=== PATIENT | female | born 1955 | race Caucasian/White ===

== ENCOUNTER 2020-03-17 14:09 | Emergency (ER) | payer MEDICARE, MEDICAID ==
[~2020-03-17] VITALS: Ht 160 cm; Wt 77.3 kg
--- NOTE | 2020-03-17 14:58 | PHYS DOC ---
Past History Past Medical History: Renal Disease Additional Past Medical Histor: dialysis Past Surgical History: No Surgical History Alcohol Use: None General Adult EDM: Chief Complaint: KNEE SWELLING HPI: HPI: Patient is a 65-year-old female who presents with a chief complaint of left knee swelling. Patient went to bed her normal state of health but woke up this morning with left knee swelling. Patient denies any trauma to the area. Patient denies any fever, chills or cough. Patient does state there is some warmth to the knee but there is no skin changes. Pain is moderate at rest and more severe with range of motion. Pain is a throbbing sensation. Review of Systems: Review of Systems: Constitutional: Denies fever or chills Eyes: Denies change in visual acuity HENT: Denies nasal congestion or sore throat Respiratory: Denies cough or shortness of breath Cardiovascular: Denies chest pain or edema GI: Denies abdominal pain, nausea, vomiting, bloody stools or diarrhea : Denies dysuria Musculoskeletal: Denies back pain but has left knee pain Integument: Denies rash Neurologic: Denies headache, focal weakness or sensory changes Endocrine: Denies polyuria or polydipsia Lymphatic: Denies swollen glands Psychiatric: Denies depression or anxiety Allergies: Allergies: Allergies Coded Allergies Type Severity Reaction Last Updated Verified No Known Drug Allergies 03/17/20 No Physical Exam: PE: Constitutional: Well developed, well nourished, no acute distress, non-toxic appearance. [] HENT: Normocephalic, atraumatic, bilateral external ears normal, oropharynx moist, no oral exudates, nose normal. [] Eyes: PERRLA, EOMI, conjunctiva normal, no discharge. [] Neck: Normal range of motion, no tenderness, supple, no stridor. [] Cardiovascular:Heart rate regular rhythm, no murmur [] Lungs & Thorax: Bilateral breath sounds clear to auscultation [] Abdomen: Bowel sounds normal, soft, no tenderness, no masses, no pulsatile masses. [] PD catheter in place Skin: Warm, dry, no erythema, no rash. [] Back: No tenderness, no CVA tenderness. [] Extremities: Swelling to the left knee without erythema, mild warmth is present. Limited range of motion due to pain Neurologic: Alert and oriented X 3, normal motor function, normal sensory function, no focal deficits noted. [] Psychologic: Affect normal, judgement normal, mood normal. [] Current Patient Data: Vital Signs: Vital Signs Date Time Temp Pulse Resp B/P (MAP) Pulse Ox O2 Delivery O2 Flow Rate FiO2 03/17/20 14:24 98.1 70 16 135/80 (98) 97 Room Air EKG: EKG: [] Radiology/Procedures: Radiology/Procedures: [][place] [address] IMAGING REPORT Signed PATIENT: BRENDA COBOS ACCOUNT: [id number] : 1955 LOCATION: ER AGE: 65 SEX: F EXAM STATUS: REG ER ORD. PHYSICIAN: SARAHY BUSTAMANTE MD REASON: SWELLING LEFT KNEE, LEFT KNEE PAIN PROCEDURE: KNEE LEFT 3V EXAM: Left knee, 3 views. HISTORY: Swelling. Pain. COMPARISON: None. FINDINGS: 3 views of the left knee are obtained. There is mild tricompartmental spurring. There is a small joint effusion. There are left knee joint loose bodies. There is no fracture, dislocation or subluxation. IMPRESSION: 1. Mild tricompartmental osteoarthritis of the left knee with small joint loose bodies and joint effusion. 2. No acute osseous finding. Electronically signed by: Amelia Dobson MD (03/17/2020 3:06 PM) [facility] DICTATED AND SIGNED BY: AMELIA DOBSON MD DATE: 03/17/20 8110 CC: SARAHY BUSTAMANTE MD; DONALD CALDERON MD ~MTH0 0 Heart Score: Risk Factors: Risk Factors: DM, Current or recent (<one month) smoker, HTN, HLP, family history of CAD, obesity. Risk Scores: Score 0 - 3: 2.5% MACE over next 6 weeks - Discharge Home Score 4 - 6: 20.3% MACE over next 6 weeks - Admit for Clinical Observation Score 7 - 10: 72.7% MACE over next 6 weeks - Early Invasive Strategies Course & Med Decision Making: Course & Med Decision Making Pertinent Labs and Imaging studies reviewed. (See chart for details) [] Arthrocentesis procedure After obtaining informed consent an arthrocentesis was attempted on the left knee. Clinical education and left knee pain, rule out septic arthritis. The skin was prepped with Betadine in the usual sterile fashion. A medial approach was attempted with a 25-gauge needle used to anesthetize the skin with 1% lidocaine and an 18-gauge needle was inserted sterilely, no fluid was able to be drawn. Patient tolerated procedure well no complications Patient feels better after the attempted arthrocentesis. 64-year-old female presents with left knee pain and swelling. I attempted arthrocentesis but was unable to get any fluid. Patient's white blood cell count slightly elevated CRP is mildly elevated as well. Patient does not have a fever or redness to the area and the area only had minimal warmth, my guess is that is not septic arthritis but I did explain to the patient she is at risk for this and I cannot rule this out based on her exam. I offered to transfer the patient to [facility] for orthopedic consult and antibiotics, patient is competent and declines this. We will treat her with an Zion wrap and give her referral to orthopedist. Patient told to return if concerns or fever or redness or worsening symptoms. Dragon Disclaimer: Dragon Disclaimer: This electronic medical record was generated, in whole or in part, using a voice recognition dictation system. Departure Departure: Impression: Primary Impression: Swelling of left knee joint Disposition: 01 DC HOME SELF CARE/HOMELESS Condition: STABLE Referrals: DONALD CALDERON MD (PCP) GINA ROCHA MD 2-3 DAYS Patient Instructions: Arthralgia Additional Instructions: EMERGENCY DEPARTMENT GENERAL DISCHARGE INSTRUCTIONS THANK YOU for coming to [facility] Emergency Department (ED) today and trusting us with your care. We trust that you had a positive experience in our Emergency Department. If you wish to speak to the department Management you can contact the emergency department at YOUR FOLLOW UP INSTRUCTIONS ARE FOLLOWS: Do you have a private doctor? If you do not have a private doctor, please ask f or a resource list of physicians or clinics that may be able to assist you with follow up care. The Emergency Physician has interpreted your x-rays. The X-ray specialist will also review them. If there is a change in the findings you will be notified in 48 hours when at all possible. A lab test or lab culture may have been done, your results will be reviewed and you will be notified if you need a change in treatment. ADDITIONAL INSTRUCTIONS AND INFORMATION Your care today has been supervised by a physician who is specially trained in emergency care. Many problems require more than one evaluation for a complete diagnosis and treatment. We recommend that you schedule your follow up appointment as recommended to ensure complete treatment of your illness or injury. If you are unable to obtain follow up care and continue to have a problem, or if your condition worsens we recommend that you return to the ED. We are not able to safely determine your condition over the phone nor are we able to give sound medical advice over the phone. For these safety reasons, if you call for medical advice we will ask you to come to the ED for further evaluation If you have any questions regarding these discharge instructions please call the ED at SAFETY INFORMATION In the interest of safety, wellness, and injury prevention; we encourage you to wear your seatbelt, if you smoke; quit smoking, and we encourage your family to use protective helmet for bicycling and other sporting events that present an increased risk for head injury. IF YOUR SYMPTOMS WORSEN OR NEW SYMPTOMS DEVELOP, OR YOU HAVE CONCERNS ABOUT YOUR CONDITION; OR IF YOUR CONDITION WORSENS WHILE YOU ARE WAITING FOR YOUR FOLLOW UP APPOINTMENT; EITHER CONTACT YOUR PRIMARY CARE DOCTOR, THE PHYSICIAN WHOSE NAME AND NUMBER YOU WERE GIVEN, OR RETURN TO THE ED IMMEDIATELY. Scripts Hydrocodone Bit/Acetaminophen (NORCO 5-325 TABLET) 1 Each Tablet 1 TAB PO PRN Q6HRS PRN for PAIN, #12 TAB 0 Refills Prov: SARAHY BUSTAMANTE MD 03/17/20 SARAHY BUSTAMANTE MD Mar 17, 2020 14:58
--- NOTE | 2020-03-17 15:08 | RAD ---
EXAM: Left knee, 3 views. HISTORY: Swelling. Pain. COMPARISON: None. FINDINGS: 3 views of the left knee are obtained. There is mild tricompartmental spurring. There is a small joint effusion. There are left knee joint loose bodies. There is no fracture, dislocation or harrell bluxation. IMPRESSION: 1. Mild tricompartmental osteoarthritis of the left knee with small joint loose bodies and joint effu aline. 2. No acute osseous finding. Electronically signed by: Amelia Barbosa MD (03/17/2020 3:06 PM) [facility]
[2020-03-17 16:17] LABS: BASO # 0.1 x10^3/uL (0.0-0.2); BASO % 1 % (0-3); EOS # 0.2 x10^3/uL (0.0-0.7); EOS % 2 % (0-3); HEMATOCRIT 37.2 % (36.0-47.0); LYMPH % 9 % (24-48); MEAN CORPUSCULAR HEMOGLOBIN 32 pg (25-35); MEAN CORPUSCULAR HGB CONC 32 g/dL (31-37); MEAN CORPUSCULAR VOLUME 98 fL (79-100); MONO # 0.7 x10^3/uL (0.0-1.1); MONO % 6 % (0-9); NEUT # 9.1 x10^3uL (1.8-7.7); NEUT % 83 % (31-73); PLATELET COUNT 203 x10^3/uL (140-400); RED BLOOD COUNT 3.79 x10^6/uL (3.50-5.40); RED CELL DISTRIBUTION WIDTH 13.9 % (11.5-14.5); WHITE BLOOD COUNT 11.1 x10^3/uL (4.0-11.0)
[2020-03-17 16:19] LABS: CALCIUM 9.5 mg/dL (8.5-10.1); CREATININE 3.4 mg/dL (0.6-1.0); GFR 13.6; POTASSIUM 4.8 mmol/L (3.5-5.1)
[2020-03-17 16:22] LABS: C REACTIVE PROTEIN 13.7 mg/L (0-3.3)
[2020-03-17] MEDS ORDERED: LIDOCAINE 1% Multi-Dose 20 ML VIAL. ONE (16:26)
[2020-03-17] MEDS ORDERED: HYDR-3165 PO (17:12)
[2020-03-17] MEDS ORDERED: HYDROcodone/APAP 7.5/325MG 1 TAB TABLET PO ONE ×2 (17:15)
[2020-03-17 17:31] VITALS: BP 125/78
== END 2020-03-17 17:34 | disposition home or self-care (01) ==
LOC: ER 14:09
DX: M25.462 Effusion, left knee (principal); N28.9 Disorder of kidney and ureter, unspecified
CPT/HCPCS: 36415; 73562; 80048; 85025; 86140; 87040; 99284

== ENCOUNTER 2020-07-30 11:17 | Emergency (ER) | payer OTHER, MEDICARE, MEDICAID ==
[~2020-07-30] VITALS: Ht 160 cm; Wt 77.3 kg
[~2020-07-30 11:17] MED LIST: HYDR-3165 PO
[2020-07-30 11:54] VITALS: BP 154/70
[2020-07-30] MEDS ORDERED: LIDOCAINE/EPI/TETRACAINE TOPICAL GEL 3 ML. TP ONE (12:30)
[2020-07-30] MEDS ORDERED: DIPH,PERTUSS(ACELL),TET VAC/PF 0.5 ML SYRINGE. VAX IM ONE (12:30)
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
[2020-07-30] MEDS ORDERED: NEOM28.32 TP (13:02)
[2020-07-30] MEDS ORDERED: CEPH500T PO (13:02)
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
== END 2020-07-30 13:25 | disposition home or self-care (01) ==
LOC: ER 11:17
DX: S51.812A Laceration without foreign body of left forearm, initial encounter (principal); E11.9 Type 2 diabetes mellitus without complications; V87.7XXA Person injured in collision between other specified motor vehicles (traffic), initial encounter; Y93.89 Activity, other specified; Y92.89 Other specified places as the place of occurrence of the external cause; Y99.8 Other external cause status
CPT/HCPCS: 73090; 90471; 90715; 99283

== ENCOUNTER 2020-08-12 19:26 | Emergency (ER) | payer OTHER, MEDICARE, MEDICAID ==
[~2020-08-12] VITALS: Ht 160 cm; Wt 80.0 kg
[~2020-08-12 19:26] MED LIST changes: +CEPH500T PO; +NEOM28.32 TP
[2020-08-12 19:45] VITALS: BP 169/72
[2020-08-12] MEDS ORDERED: DEXAMETHASONE 4 MG TABLET PO ONE (19:45)
[2020-08-12] MEDS ORDERED: diphenhydrAMINE HCL 25 MG CAPSULE PO ONE (19:45)
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
== END 2020-08-12 20:26 | disposition home or self-care (01) ==
LOC: ER 19:26
DX: L23.7 Allergic contact dermatitis due to plants, except food (principal); F17.210 Nicotine dependence, cigarettes, uncomplicated
CPT/HCPCS: 99283; J8540; Q0163

== ENCOUNTER → 2020-08-14 | Outpatient (CLI) | payer MEDICARE, MEDICAID ==
[2020-08-12 19:45] VITALS: BP 169/72
--- NOTE | 2020-08-14 14:40 | RAD ---
EXAM: Chest, 2 views. HISTORY: COPD. Asthma. Shortness of breath. COMPARISON: None. FINDINGS: 2 views of the chest are obtained. There is enlargement of the cardiac silhouette. There is no consolidation, pleural effusion or pneumothorax. There are suspected bilateral infrahilar atelect asis or pleural parenchymal scarring. IMPRESSION: 1. Cardiomegaly. 2. Suspected bilateral infrahilar atelectasis or scarring. Electronically signed by: Amelia Barbosa MD (08/14/2020 2:38 PM) [id number]
== END ==
LOC: RAD 14:15
PROVIDERS: ATTEND Family Medicine
DX: J98.11 Atelectasis (principal); J45.909 Unspecified asthma, uncomplicated; I51.7 Cardiomegaly
CPT/HCPCS: 71046

== ENCOUNTER → 2020-09-07 | Day surgery (SDC) | payer MEDICARE, MEDICAID ==
[~2020-09-07] MED LIST changes: +ACETAMINOPHEN 500 MG TABLET PO PRN; +ALLO100T PO; +BALANCED SALT IRRIG SOLN NO.2 500 ML IO ONE; +BENZONATATE 100 MG CAPSULE. PO PRN; +BRIMONIDINE 0.2% OPHTH SOLUTION 5ML BOTTLE. OD ONE; +CEFUROXIME OPHTH 4 MG/0.4 ML SYRINGE. OD ONE; +CHONDROIT-SOD-HYALURONATE KIT. OD ONE; +CITA10TA4 PO; +FAMO20TA5 PO; +FOLI0.8T21 PO; +IBUPROFEN 200 MG TABLET PO PRN; +IPRATRPIUM/ALBUTEROL 0.5/2.5MG 3 ML NEBU. NEB PRN; +IV RINGERS SOLUTION,LACTATED 1,000 ML IV SCH; +LABE100T5 PO; +LIDO/EPI IN BSS OPHTH 2.7 ML SYRINGE. OD ONE; +LIDOCAINE 2% JELLY 6ML IN APPLICATOR. ONE; +LOSA50TA86 PO; +METO5TAB4 PO; +MIDAZOLAM HCL PF 2 MG/2 ML VIAL. IV ONE; +MIDAZOLAM HCL PF 2 MG/2 ML VIAL. ONE; +OMEP40CA7 PO; +PHENYLEPHRINE 10% OPHTH SOLUTION 5ML BOTTLE. OD PRN; +POVIDONE-IODINE 5% OPHTH SOLUTION 30ML BOTTLE. OD ONE; +POVIDONE-IODINE 5% OPHTH SOLUTION 30ML BOTTLE. OD PRN; +POVIDONE-IODINE 5% OPHTH SOLUTION 30ML BOTTLE. ONE; +PROPARACAINE 0.5% OPHTH SOLUTION 15ML BOTTLE. OD ONE; +PROPARACAINE 0.5% OPHTH SOLUTION 15ML BOTTLE. OD PRN; +ROPI0.254 PO; +TEMA15CA PO; +bupropion PEG; +prednisoLONE ACETATE 1% OPHTH SUSPENSION 5ML BOTTLE. OD ONE
[2020-09-07] MEDS: TROPICAMIDE 1% OPHTH SOLUTION 15ML BOTTLE. OD SCH ×3 (09:47→10:02)
[2020-09-07] MEDS: PHENYLEPHRINE 2.5% OPHTH SOLUTION 2ML BOTTLE. OD SCH ×3 (09:47→10:03)
[2020-09-07] MEDS: KETOROLAC TROMETHAMINE 0.5% OPHTH SOLUTION BOTTLE. OD SCH ×2 (09:47→09:57)
[2020-09-07] MEDS: TOBRAMYCIN 0.3% OPHTH SOLUTION 5ML BOTTLE. OD SCH ×2 (09:48→09:57)
--- NOTE | 2020-09-07 11:42 | PDOC4 ---
SURGEON: Wilber Juan MD Date of Procedure: 09/07/20 PREOP Diagnosis Visually significant cataract: Right Eye OD POSTOP Diagnosis Same PROCEDURE: Phaco w/ posterior chamber IOL: Right Eye OD ANESTHESIA Deep forniceal periocular 2% Lidocaine jelly Daniela/retro bulbar block with 2% Lidocaine with 0.5% Marcaine DESCRIPTION OF PROCEDURE The risks, benefits, and alternatives were discussed with the patient who elected to proceed. Informed consent was obtained in writing and placed in the chart After anesthetizing the eye topically, the patient was taken to the operating room, and the operative eye was prepped and draped in the usual sterile fashion for ocular surgery. A wire lid speculum was placed. A 1-mm clear corneal paracentesis incision was created with the side-port blade at a position three o'clock hours clockwise from the temporal cornea. Then, 1% non-preserved Lidocaine with epinephrine was injected into the anterior chamber followed by viscoelastic. Cotton-tipped applicators were used to stabilize the globe, and a 2.4 mm keratome was used to create a self-sealing incision in clear cornea at the temporal limbus. The Utrata forceps were used to create a continuous curvilinear capsulorrhexis. Balanced saline solution was injected via cannula beneath the capsulorrhexis edge to hydrodissect the lens nucleus and cortex from the lens capsule. The phacoemulsification handpiece and a chopping instrument were then used to remove the lens nucleus. The remaining epinuclear material and cortex were removed with the irrigation/aspiration handpiece. V iscoelastic was used to re-inflate the lens capsule, and the intraocular lens was injected directly into the capsular bag. The corneal wound edges were hydrated with balanced salt solution on a cannula and the irrigation/aspiration handpiece was used to extract the remaining viscoelastic. Cefuroxime 0.1mg/ml / Vigamox 0.5% was injected into the anterior chamber intracamerally. The wounds were inspected and found to be watertight at an appropriate intraocular pressure. Topical antibiotic drops were placed on the corneal surface. LRI: No If Yes, Number [] [place] [] Length [] degrees Depth [] microns Incision [place]: 180 Toric Lens [place] [] Patch/shield with Maxitrol/Tobradex/Erythromycin ointment: Yes No Co-managed patients/postop examination stable for co-management with referring doctor. EBL EBL: None SPECIMANS COLLECTED Specimens Collected: None WILBER JUAN MD Sep 07, 2020 11:42
[2020-09-07 11:52] VITALS: BP 118/65
== END | disposition home or self-care (01) ==
LOC: SURG 09:23
PROVIDERS: ATTEND Ophthalmology
DX: E11.36 Type 2 diabetes mellitus with diabetic cataract (principal); H25.11 Age-related nuclear cataract, right eye; J44.9 Chronic obstructive pulmonary disease, unspecified; I12.0 Hypertensive chronic kidney disease with stage 5 chronic kidney disease or end stage renal disease; E11.22 Type 2 diabetes mellitus with diabetic chronic kidney disease; J45.909 Unspecified asthma, uncomplicated; F17.210 Nicotine dependence, cigarettes, uncomplicated; Z79.899 Other long term (current) drug therapy; Z98.890 Other specified postprocedural states
CPT/HCPCS: 66984; V2632; J2250

== ENCOUNTER → 2020-09-21 | Day surgery (SDC) | payer MEDICARE, MEDICAID ==
[~2020-09-21] MED LIST changes: -BRIMONIDINE 0.2% OPHTH SOLUTION 5ML BOTTLE. OD ONE; +BRIMONIDINE 0.2% OPHTH SOLUTION 5ML BOTTLE. OS ONE; -CEFUROXIME OPHTH 4 MG/0.4 ML SYRINGE. OD ONE; +CEFUROXIME OPHTH 4 MG/0.4 ML SYRINGE. OS ONE; -CHONDROIT-SOD-HYALURONATE KIT. OD ONE; +CHONDROIT-SOD-HYALURONATE KIT. OS ONE; -LIDO/EPI IN BSS OPHTH 2.7 ML SYRINGE. OD ONE; +LIDO/EPI IN BSS OPHTH 2.7 ML SYRINGE. OS ONE; -PHENYLEPHRINE 10% OPHTH SOLUTION 5ML BOTTLE. OD PRN; +PHENYLEPHRINE 10% OPHTH SOLUTION 5ML BOTTLE. OS PRN; -POVIDONE-IODINE 5% OPHTH SOLUTION 30ML BOTTLE. OD ONE; -POVIDONE-IODINE 5% OPHTH SOLUTION 30ML BOTTLE. OD PRN; +POVIDONE-IODINE 5% OPHTH SOLUTION 30ML BOTTLE. OS ONE; +POVIDONE-IODINE 5% OPHTH SOLUTION 30ML BOTTLE. OS PRN; -PROPARACAINE 0.5% OPHTH SOLUTION 15ML BOTTLE. OD ONE; -PROPARACAINE 0.5% OPHTH SOLUTION 15ML BOTTLE. OD PRN; +PROPARACAINE 0.5% OPHTH SOLUTION 15ML BOTTLE. OS ONE; +PROPARACAINE 0.5% OPHTH SOLUTION 15ML BOTTLE. OS PRN; -prednisoLONE ACETATE 1% OPHTH SUSPENSION 5ML BOTTLE. OD ONE; +prednisoLONE ACETATE 1% OPHTH SUSPENSION 5ML BOTTLE. OS ONE
[2020-09-21] MEDS: TROPICAMIDE 1% OPHTH SOLUTION 15ML BOTTLE. OS SCH ×3 (09:45→09:57)
[2020-09-21] MEDS: PHENYLEPHRINE 2.5% OPHTH SOLUTION 2ML BOTTLE. OS SCH ×3 (09:45→09:56)
[2020-09-21] MEDS: KETOROLAC TROMETHAMINE 0.5% OPHTH SOLUTION BOTTLE. OS SCH ×2 (09:45→09:52)
[2020-09-21] MEDS: TOBRAMYCIN 0.3% OPHTH SOLUTION 5ML BOTTLE. OS SCH ×2 (09:46→09:52)
--- NOTE | 2020-09-21 11:42 | PDOC4 ---
SURGEON: Wilber Juan MD Date of Procedure: 09/21/20 PREOP Diagnosis Visually significant cataract: Left Eye OS POSTOP Diagnosis Same PROCEDURE: Phaco w/ posterior chamber IOL: Left Eye OS ANESTHESIA Deep forniceal periocular 2% Lidocaine jelly Daniela/retro bulbar block with 2% Lidocaine with 0.5% Marcaine DESCRIPTION OF PROCEDURE The risks, benefits, and alternatives were discussed with the patient who elected to proceed. Informed consent was obtained in writing and placed in the chart After anesthetizing the eye topically, the patient was taken to the operating room, and the operative eye was prepped and draped in the usual sterile fashion for ocular surgery. A wire lid speculum was placed. A 1-mm clear corneal paracentesis incision was created with the side-port blade at a position three o'clock hours clockwise from the temporal cornea. Then, 1% non-preserved Lidocaine with epinephrine was injected into the anterior chamber followed by viscoelastic. Cotton-tipped applicators were used to stabilize the globe, and a 2.4 mm keratome was used to create a self-sealing incision in clear cornea at the temporal limbus. The Utrata forceps were used to create a continuous curvilinear capsulorrhexis. Balanced saline solution was injected via cannula beneath the capsulorrhexis edge to hydrodissect the lens nucleus and cortex from the lens capsule. The phacoemulsification handpiece and a chopping instrument were then used to remove the lens nucleus. The remaining epinuclear material and cortex were removed with the irrigation/aspiration handpiece. Vis coelastic was used to re-inflate the lens capsule, and the intraocular lens was injected directly into the capsular bag. The corneal wound edges were hydrated with balanced salt solution on a cannula and the irrigation/aspiration handpiece was used to extract the remaining viscoelastic. Cefuroxime 0.1mg/ml / Vigamox 0.5% was injected into the anterior chamber intracamerally. The wounds were inspected and found to be watertight at an appropriate intraocular pressure. Topical antibiotic drops were placed on the corneal surface. LRI: No If Yes, Number [] [place] [] Length [] degrees Depth [] microns Incision [place]: 180 Toric Lens [place] [] Patch/shield with Maxitrol/Tobradex/Erythromycin ointment: Yes No Co-managed patients/postop examination stable for co-management with referring doctor. EBL EBL: None SPECIMANS COLLECTED Specimens Collected: None WILBER JUAN MD Sep 21, 2020 11:41
[2020-09-21 11:52] VITALS: BP 165/76
== END | disposition home or self-care (01) ==
LOC: SURG 09:27
PROVIDERS: ATTEND Ophthalmology
DX: E11.36 Type 2 diabetes mellitus with diabetic cataract (principal); H25.12 Age-related nuclear cataract, left eye; F41.9 Anxiety disorder, unspecified; J44.9 Chronic obstructive pulmonary disease, unspecified; K21.9 Gastro-esophageal reflux disease without esophagitis; F17.210 Nicotine dependence, cigarettes, uncomplicated; I12.0 Hypertensive chronic kidney disease with stage 5 chronic kidney disease or end stage renal disease; E11.22 Type 2 diabetes mellitus with diabetic chronic kidney disease; N18.6 End stage renal disease; Z72.89 Other problems related to lifestyle; Z79.899 Other long term (current) drug therapy
CPT/HCPCS: 66984; V2632; J2250

== ENCOUNTER 2020-10-26 11:52 | Emergency (ER) | payer MEDICAID, MEDICARE ==
[~2020-10-26] VITALS: Ht 160 cm; Wt 80.0 kg
[~2020-10-26 11:52] MED LIST changes: -ACETAMINOPHEN 500 MG TABLET PO PRN; -BALANCED SALT IRRIG SOLN NO.2 500 ML IO ONE; -BENZONATATE 100 MG CAPSULE. PO PRN; -BRIMONIDINE 0.2% OPHTH SOLUTION 5ML BOTTLE. OS ONE; -CEFUROXIME OPHTH 4 MG/0.4 ML SYRINGE. OS ONE; -CHONDROIT-SOD-HYALURONATE KIT. OS ONE; -IBUPROFEN 200 MG TABLET PO PRN; -IPRATRPIUM/ALBUTEROL 0.5/2.5MG 3 ML NEBU. NEB PRN; -IV RINGERS SOLUTION,LACTATED 1,000 ML IV SCH; -LIDO/EPI IN BSS OPHTH 2.7 ML SYRINGE. OS ONE; -LIDOCAINE 2% JELLY 6ML IN APPLICATOR. ONE; -MIDAZOLAM HCL PF 2 MG/2 ML VIAL. IV ONE; -MIDAZOLAM HCL PF 2 MG/2 ML VIAL. ONE; -PHENYLEPHRINE 10% OPHTH SOLUTION 5ML BOTTLE. OS PRN; -POVIDONE-IODINE 5% OPHTH SOLUTION 30ML BOTTLE. ONE; -POVIDONE-IODINE 5% OPHTH SOLUTION 30ML BOTTLE. OS ONE; -POVIDONE-IODINE 5% OPHTH SOLUTION 30ML BOTTLE. OS PRN; -PROPARACAINE 0.5% OPHTH SOLUTION 15ML BOTTLE. OS ONE; -PROPARACAINE 0.5% OPHTH SOLUTION 15ML BOTTLE. OS PRN; -prednisoLONE ACETATE 1% OPHTH SUSPENSION 5ML BOTTLE. OS ONE
[2020-10-26] MEDS ORDERED: IV NORMAL SALINE 1,000ML 1,000 ML IV ONE (13:15)
--- NOTE | 2020-10-26 13:16 | PHYS DOC ---
Past History Past Medical History: Hypertension Additional Past Medical Histor: dialysis Past Surgical History: No Surgical History Alcohol Use: Occasionally General Adult EDM: Chief Complaint: NAUSEA/VOMITING/DIARRHEA HPI: HPI: 65-year-old female presents with nausea and vomiting. The patient had some pork last night and about an hour later she had an episode of vomiting and stomach pain. She is concerned that she may have had mild food poisoning. She did not have any diarrhea. She has had no further vomiting. The pain has improved. Review of Systems: Review of Systems: Constitutional: Denies fever or chills Eyes: Denies change in visual acuity HENT: Denies nasal congestion or sore throat Respiratory: Denies cough or shortness of breath Cardiovascular: Denies chest pain or edema GI: Generalized abdominal pain, vomiting. : Denies dysuria Musculoskeletal: Denies back pain or joint pain Integument: Denies rash Neurologic: Denies headache, focal weakness or sensory changes Endocrine: Denies polyuria or polydipsia Lymphatic: Denies swollen glands Psychiatric: Denies depression or anxiety Current Medications: Current Meds: Current Medications Medications (Trade) Dose Ordered Sig/Jane Start Time Stop Time Status Last Admin Dose Admin Sodium Chloride 1,000 ml @ 1,000 mls/hr 1X ONCE 10/26/20 13:15 10/26/20 14:14 Allergies: Allergies: Allergies Coded Allergies Type Severity Reaction Last Updated Verified No Known Drug Allergies 09/19/20 No Physical Exam: PE: Constitutional: Well developed, well nourished, no acute distress, non-toxic appearance. [] HENT: Normocephalic, atraumatic, bilateral external ears normal, oropharynx moist, no oral exudates, nose normal. [] Eyes: PERRLA, EOMI, conjunctiva normal, no discharge. [] Neck: Normal range of motion, no tenderness, supple, no stridor. [] Cardiovascular:Heart rate regular rhythm, no murmur [] Lungs & Thorax: Bilateral breath sounds clear to auscultation [] Abdomen: Bowel sounds normal, soft, no tenderness, no masses, no pulsatile masses. [] Skin: Warm, dry, no erythema, no rash. [] Back: No tenderness, no CVA tenderness. [] Extremities: No tenderness, no cyanosis, no clubbing, ROM intact, no edema. [] Neurologic: Alert and oriented X 3, normal motor function, normal sensory fun ction, no focal deficits noted. [] Psychologic: Affect normal, judgement normal, mood normal. [] Current Patient Data: Vital Signs: Vital Signs Date Time Temp Pulse Resp B/P (MAP) Pulse Ox O2 Delivery O2 Flow Rate FiO2 10/26/20 12:08 98.7 71 18 142/62 97 Room Air EKG: EKG: [] Radiology/Procedures: Radiology/Procedures: [] Heart Score: C/O Chest Pain: N/A Risk Factors: Risk Factors: DM, Current or recent (<one month) smoker, HTN, HLP, family histo ry of CAD, obesity. Risk Scores: Score 0 - 3: 2.5% MACE over next 6 weeks - Discharge Home Score 4 - 6: 20.3% MACE over next 6 weeks - Admit for Clinical Observation Score 7 - 10: 72.7% MACE over next 6 weeks - Early Invasive Strategies Course & Med Decision Making: Course & Med Decision Making Pertinent Labs and Imaging studies reviewed. (See chart for details) Patient's labs are unremarkable except for an elevated potassium of 5.6. The patient is due to dialyze herself when she gets home today. BUN and creatinine are high as expected for a dialysis patient. She is stable for discharge at this time. [] Dragon Disclaimer: Dragdanie Disclaimer: This electronic medical record was generated, in whole or in part, using a voice recognition dictation system. Departure Departure: Impression: Primary Impression: Vomiting Additional Impression: Food poisoning Disposition: HOME / SELF CARE / HOMELESS Condition: STABLE Referrals: DENISE WOODWARD MD (PCP) Patient Instructions: Food Poisoning, [id number] DAVID DE LA ROSA DO Oct 26, 2020 13:16
[2020-10-26 13:51] LABS: BASO # 0.1 x10^3/uL (0.0-0.2); BASO % 1 % (0-3); EOS # 0.3 x10^3/uL (0.0-0.7); EOS % 3 % (0-3); HEMATOCRIT 34.3 % (36.0-47.0); HEMOGLOBIN 11.3 g/dL (12.0-15.5); LYMPH # 1.1 x10^3/uL (1.0-4.8); LYMPH % 14 % (24-48); MEAN CORPUSCULAR HEMOGLOBIN 33 pg (25-35); MEAN CORPUSCULAR HGB CONC 33 g/dL (31-37); MEAN CORPUSCULAR VOLUME 99 fL (79-100); MONO # 0.4 x10^3/uL (0.0-1.1); MONO % 6 % (0-9); NEUT # 5.7 x10^3uL (1.8-7.7); NEUT % 76 % (31-73); PLATELET COUNT 254 x10^3/uL (140-400); RED BLOOD COUNT 3.47 x10^6/uL (3.50-5.40); RED CELL DISTRIBUTION WIDTH 14.3 % (11.5-14.5); WHITE BLOOD COUNT 7.5 x10^3/uL (4.0-11.0)
[2020-10-26 13:59] LABS: CALCIUM 9.4 mg/dL (8.5-10.1); CREATININE 3.8 mg/dL (0.6-1.0); POTASSIUM 5.6 mmol/L (3.5-5.1)
[2020-10-26 14:05] LABS: ALBUMIN 3.2 g/dL (3.4-5.0); ALBUMIN/GLOBULIN RATIO 0.8 (1.0-1.7); TOTAL BILIRUBIN 0.2 mg/dL (0.2-1.0); TOTAL PROTEIN 7.1 g/dL (6.4-8.2)
[2020-10-26 14:42] VITALS: BP 136/60
== END 2020-10-26 14:46 | disposition home or self-care (01) ==
LOC: ER 11:52
DX: A05.9 Bacterial foodborne intoxication, unspecified (principal); R10.84 Generalized abdominal pain; I10 Essential (primary) hypertension
CPT/HCPCS: 36415; 80053; 85025; 99283

== ENCOUNTER 2020-11-08 10:57 | Emergency (ER) | payer MEDICARE, MEDICAID ==
[~2020-11-08] VITALS: Ht 160 cm; Wt 80.0 kg
--- NOTE | 2020-11-08 11:56 | PHYS DOC ---
Past History Past Medical History: Hypertension Additional Past Medical Histor: dialysis, vertigo Past Surgical History: No Surgical History Alcohol Use: None Adult General Chief Complaint Chief Complaint: SHORTNESS OF BREATH [facility] HPI Patient is a 62-year-old female patient presents with shortness of breath, and worsening murmur. Patient reports over the last couple weeks, she has noticed her heart murmur to be a lot lower than it used to be. States since last night, she has had some intermittent dizziness, states she been very unsteady on her feet. She is a dialysis patient, she is due to dialyze tomorrow. States this morning when she had gotten up, she started have some increased shortness of breath, has had some exertional dyspnea, with some nausea. States she has some chest pain prior to coming in, however states her chest pain is relieved while resting in bed at this time. She has not taken any additional medications, she does not take aspirin each day. She states she does not have a programming instructor, she has not seen a programming instructor for many years, however she was just more co ncerned over her worsening heart murmur that she has heard Review of Systems Review of Systems Constitutional: Denies fever or chills [] Eyes: Denies change in visual acuity, redness, or eye pain [] HENT: Denies nasal congestion or sore throat [] Respiratory: Denies cough does report some exertional shortness of breath Cardiovascular: No additional information not addressed in HPI [] states she had chest pain earlier in the day GI: Denies abdominal pain, nausea, vomiting, bloody stools or diarrhea [] : Denies dysuria or hematuria [] Musculoskeletal: Denies back pain or joint pain [] Integument: Denies rash or skin lesions [] Neurologic: Denies headache, focal weakness or sensory changes [] states she has some intermittent dizziness Endocrine: Denies polyuria or polydipsia [] All other systems were reviewed and found to be within normal limits, except as documented in this note. Allergies Allergies Allergies Coded Allergies Type Severity Reaction Last Updated Verified No Known Drug Allergies 09/19/20 No Physical Exam Physical Exam Constitutional: Well developed, well nourished, no acute distress, non-toxic appearance. [] HENT: Normocephalic, atraumatic, bilateral external ears normal, oropharynx moist, no oral exudates, nose normal. [] Eyes: PERRLA, EOMI, conjunctiva normal, no discharge. [] Neck: Normal range of motion, no tenderness, supple, no stridor. [] Cardiovascular:Heart rate regular rhythm [] grade IV/ audible Murmur. Lungs & Thorax: Bilateral breath sounds clear to auscultation [] Abdomen: Bowel sounds normal, soft, no tenderness, no masses, no pulsatile masses. [] Skin: Warm, dry, no erythema, no rash. [] Back: No tenderness, no CVA tenderness. [] Extremities: No tenderness, no cyanosis, no clubbing, ROM intact, no edema. [] Neurologic: Alert and oriented X 3, normal motor function, normal sensory function, no focal deficits noted. [] Psychologic: Affect normal, judgement normal, mood normal. [] Current Patient Data Vital Signs Vital Signs Date Time Temp Pulse Resp B/P (MAP) Pulse Ox O2 Delivery O2 Flow Rate FiO2 11/08/20 11:18 98.3 88 16 134/70 96 Room Air EKG EKG Initial SInus Rhythm with minimal elevation to V2 per Dr Chadwick. No ST depression. NOrmal axis, normal intervals. Re-evaluated. Sinus rhythm without acute ST changes per Dr Chadwick. normal axis. normal intervals. [place] 94 QRS 86 QTc 407 Radiology/Procedures Radiology/Procedures [address] [address] IMAGING REPORT Signed PATIENT: BRENDA COBOS ACCOUNT: [id number] : 1955 LOCATION: ER AGE: 65 SEX: F EXAM STATUS: REG ER ORD. PHYSICIAN: RILEY ULRICH APRN REASON: SOA PROCEDURE: CHEST AP ONLY EXAM: CHEST ONE VIEW. HISTORY: Shortness of breath. COMPARISON: 08/14/2020. FINDINGS: A frontal view of the chest is obtained. There are no confluent infiltrates. There is no pneumothorax or pleural effusion. The heart is moderately enlarged. Calcified lymph nodes likely reflect old granulomatous disease. There are atherosclerotic calcifications of the aorta. IMPRESSION: 1. Moderate cardiomegaly. Electronically signed by: Barbara Linares MD (11/08/2020 12:22 PM) [id number] DICTATED AND SIGNED BY: WILBER LINARES MD DATE: 11/08/20 1220 CC: EMERGENCY,DEPARTMENT; DENISE WOODWARD MD; RILEY ULRICH APRN ~MTH0 0 [] Heart Score C/O Chest Pain: Yes HEART Score for Chest Pain: HEART Score for Chest Pain Response (Comments) Value History Moderately Suspicious 1 ECG Nonspecific Repolarizatio 1 Age >45 - < 65 1 Risk Factors >3 Risk Factors or Hx CAD 2 Troponin >1-<3x Normal Limit 1 Total 6 Risk Factors: Risk Factors: DM, Current or recent (<one month) smoker, HTN, HLP, family history of CAD, obesity. Risk Scores: Risk Factors: DM, Current or recent (<one month) smoker, HTN, HLP, family history of CAD, obesity. Course & Med Decision Making Course & Med Decision Making Pertinent Labs and Imaging studies reviewed. (See chart for details) []Will repeat troponin, patient agreeable. Patient reports she is feeling much better at this time. States she wants to go home. Agreeable to awaiting repeat troponin. States she has a little dizziness still, requesting mediations for dizziness. States she has had this recurring for quite some time Advise patient she will most likely need programming instructor follow up for her worsened murmur. She states she doesn't plan to as she does not have the money to pay for the appointment. Reinforced with patient recommendation. Repeat troponin unchanged / lower than prior. LIkely related to Renal failure. Will plan to discharge with patient to follow up with PCP and cardiology Shayne Disclaimer Shayne Disclaimer This electronic medical record was generated, in whole or in part, using a voice recognition dictation system. Departure Departure: Impression: Primary Impression: Exertional dyspnea Additional Impressions: End stage renal disease Heart murmur on physical examination Disposition: HOME / SELF CARE / HOMELESS Condition: GOOD Referrals: DENISE WOODWARD MD (PCP) Patient Instructions: Heart Failure, [id number], Heart Murmur Additional Instructions: As discussed, make sure you keep going to dialysis as you have been Continue to watch your fluid intake Try to make a follow up with a programming instructor again to evaluate your heart murmur Problem Qualifiers RILEY ULRICH APRN Nov 08, 2020 11:56
[2020-11-08] MEDS ORDERED: ASPIRIN CHEWABLE 81 MG TABLET. PO ONE (12:00)
[2020-11-08 12:11] LABS: BASO # 0.1 x10^3/uL (0.0-0.2); BASO % 0 % (0-3); EOS % 0 % (0-3); HEMATOCRIT 33.5 % (36.0-47.0); HEMOGLOBIN 10.9 g/dL (12.0-15.5); LYMPH # 0.6 x10^3/uL (1.0-4.8); LYMPH % 4 % (24-48); MEAN CORPUSCULAR HEMOGLOBIN 32 pg (25-35); MEAN CORPUSCULAR HGB CONC 33 g/dL (31-37); MEAN CORPUSCULAR VOLUME 98 fL (79-100); MONO # 1.1 x10^3/uL (0.0-1.1); MONO % 8 % (0-9); NEUT # 12.3 x10^3uL (1.8-7.7); NEUT % 88 % (31-73); PLATELET COUNT 176 x10^3/uL (140-400); RED BLOOD COUNT 3.41 x10^6/uL (3.50-5.40); RED CELL DISTRIBUTION WIDTH 14.4 % (11.5-14.5); WHITE BLOOD COUNT 14.1 x10^3/uL (4.0-11.0)
--- NOTE | 2020-11-08 12:24 | RAD ---
EXAM: CHEST ONE VIEW. HISTORY: Shortness of breath. COMPARISON: 08/14/2020. FINDINGS: A frontal view of the chest is obtained. There are no confluent infiltrates. There is no pneumothorax or pleural effusion. The heart is modera tely enlarged. Calcified lymph nodes likely reflect old granulomatous disease. There are atherosclero tic calcifications of the aorta. IMPRESSION: 1. Moderate cardiomegaly. Electronically signed by: Barbara Linares MD (11/08/2020 12:22 PM) [id number]
[2020-11-08 12:28] LABS: ANION GAP 11 (6-14); BLOOD UREA NITROGEN 43 mg/dL (7-20); BUN/CREATININE RATIO 9 (6-20); CALCIUM 9.1 mg/dL (8.5-10.1); CARBON DIOXIDE 22 mmol/L (21-32); CHLORIDE 99 mmol/L (98-107); GFR 8.7; GLUCOSE 80 mg/dL (70-99); POTASSIUM 5.1 mmol/L (3.5-5.1); SODIUM 132 mmol/L (136-145)
--- NOTE | 2020-11-08 12:31 | EKG ---
[address] [address] Test Date: 2020-11-08 Test Time: 11:20:08 Pat Name: BRENDA COBOS Department: Room: Gender: F Workforce Specialist: GERI : 1955 Requested By: RILEY ULRICH Order Number: [id number] Reading MD: Measurements Intervals [place] Rate: 87 P: 31 DE: 174 QRS: 1 QRSD: 90 T: 86 QT: 332 QTc: 400 Interpretive Statements SINUS RHYTHM R-S TRANSITION ZONE IN V LEADS DISPLACED TO THE LEFT T ABNORMALITY IN HIGH LATERAL LEADS ABNORMAL ECG RI6.02 No previous ECG available for comparison
[2020-11-08 12:40] LABS: ALBUMIN 2.7 g/dL (3.4-5.0); ALBUMIN/GLOBULIN RATIO 0.7 (1.0-1.7); ALK PHOS 76 U/L (46-116); ALT (SGPT) 21 U/L (14-59); AST (SGOT) 26 U/L (15-37); TOTAL BILIRUBIN 0.5 mg/dL (0.2-1.0); TOTAL PROTEIN 6.6 g/dL (6.4-8.2)
[2020-11-08 13:30] VITALS: BP 121/56
[2020-11-08] MEDS ORDERED: MECLIZINE 12.5 MG TABLET. PO ONE (14:30)
--- NOTE | 2020-11-08 15:25 | EKG ---
[address] [address] Test Date: 2020-11-08 Test Time: 12:39:22 Pat Name: BRENDA COBOS Department: Room: Gender: F Model Engine Mechanic: GERI : 1955 Requested By: RILEY ULRICH Order Number: [id number] Reading MD: Measurements Intervals [place] Rate: 85 P: 39 LA: 178 QRS: 15 QRSD: 86 T: 56 QT: 342 QTc: 407 Interpretive Statements SINUS RHYTHM NORMAL ECG RI6.02 No previous ECG available for comparison
== END 2020-11-08 15:50 | disposition home or self-care (01) ==
LOC: ER 10:57
DX: I12.0 Hypertensive chronic kidney disease with stage 5 chronic kidney disease or end stage renal disease (principal); N18.6 End stage renal disease; R01.1 Cardiac murmur, unspecified; R06.09 Other forms of dyspnea; Z99.2 Dependence on renal dialysis; Z20.822 Contact with and (suspected) exposure to COVID-19
CPT/HCPCS: 36415; 71045; 80053; 82550; 83605; 83880; 84484; 85025; 93005; 99285; C9803; U0003

== ENCOUNTER 2020-11-16 18:17 | Emergency (ER) | payer MEDICARE, MEDICAID ==
[~2020-11-16] VITALS: Ht 160 cm; Wt 80.0 kg
--- NOTE | 2020-11-16 18:47 | PHYS DOC ---
Past History Past Medical History: Hypertension Additional Past Medical Histor: dialysis, vertigo (BRYANNA RANDLE APRN) Past Surgical History: No Surgical History (BRYANNA RANDLE APRN) Alcohol Use: None (BRYANNA RANDLE APRN) General Adult EDM: Chief Complaint: FATIGUE HPI: HPI: Patient is a 65-year-old female who presents to the ER with fatigue for the last 2 days. Patient does peritoneal dialysis at home.Her technology strategist is Dr. Mason. She reports that today she was attempting to perform peritoneal dialysis when she spilled the dialysate was unable to perform dialysis. Patient denies shortness of breath fevers, abdominal pain, nausea, vomiting. She reports that she has had a very rough day and that has given her some thoughts of wanting to hurt herself although she does not have a plan does not intend to act on those thoughts. Patient has never attempted to hurt her self in the past and has no diagnosed mental disorders. (BRYANNA RANDLE APRN) Review of Systems: Review of Systems: 14 body systems of the review of systems have been reviewed. See HPI for pertinent positive and negative responses, otherwise all other systems are negative, nonpertinent or noncontributory (BRYANNA RANDLE APRN) Allergies: Allergies: Allergies Coded Allergies Type Severity Reaction Last Updated Verified No Known Drug Allergies 09/19/20 No (BRYANNA RANDLE APRN) Physical Exam: PE: Constitutional: Well developed, well nourished, no acute distress, non-toxic appearance. [] HENT: Normocephalic, atraumatic, bilateral external ears normal, oropharynx moist, no oral exudates, nose normal. [] Eyes: PERRL, EOMI, conjunctiva normal, no discharge. [] Neck: Normal range of motion, no stridor Cardiovascular:Heart rate regular rhythm, no murmur [] Lungs & Thorax: Bilateral breath sounds clear to auscultation, no hypoxia [] Abdomen: Bowel sounds normal, soft, no tenderness, no masses, no pulsatile masses, peritoneal dialysis shunt in the lower abdomen without any surrounding signs of infection. [] Skin: Warm, dry, no erythema, no rash. [] Back: Normal range of motion Extremities: No tenderness, no cyanosis, no clubbing, ROM intact, no edema. Fistula noted to right forearm that is not functioning [] Neurologic: Alert and oriented X 3, normal motor function, normal sensory function, no focal deficits noted. [] Psychologic: Affect normal, judgement normal, mood normal. [] (BRYANNA RANDLE APRN) Current Patient Data: Labs: Laboratory Tests Test 11/16/20 18:40 11/16/20 18:48 White Blood Count 16.8 x10^3/uL Red Blood Count 3.20 x10^6/uL Hemoglobin 10.1 g/dL Hematocrit 31.3 % Mean Corpuscular Volume 98 fL Mean Corpuscular Hemoglobin 32 pg Mean Corpuscular Hemoglobin Concent 32 g/dL Red Cell Distribution Width 14.5 % Platelet Count 198 x10^3/uL Neutrophils (%) (Auto) 87 % Lymphocytes (%) (Auto) 7 % Monocytes (%) (Auto) 6 % Eosinophils (%) (Auto) 0 % Basophils (%) (Auto) 0 % Neutrophils # (Auto) 14.7 x10^3uL Lymphocytes # (Auto) 1.1 x10^3/uL Monocytes # (Auto) 1.0 x10^3/uL Eosinophils # (Auto) 0.0 x10^3/uL Basophils # (Auto) 0.0 x10^3/uL Platelet Estimate Pending Sodium Level 129 mmol/L Potassium Level 4.0 mmol/L Chloride Level 93 mmol/L Carbon Dioxide Level 23 mmol/L Anion Gap 13 Blood Urea Nitrogen 46 mg/dL Creatinine 5.5 mg/dL Estimated GFR (Cockcroft-Gault) 7.8 BUN/Creatinine Ratio 8 Glucose Level 87 mg/dL Calcium Level 7.6 mg/dL Total Bilirubin 0.3 mg/dL Aspartate Amino Transf (AST/SGOT) 31 U/L Alanine Aminotransferase (ALT/SGPT) 27 U/L Alkaline Phosphatase 47 U/L Total Protein 5.4 g/dL Albumin 2.3 g/dL Albumin/Globulin Ratio 0.7 Ethyl Alcohol Level < 10 mg/dL SARS-CoV-2 Antigen (Rapid) Positive (BRYANNA RANDLE APRN) EKG: EKG: EKG performed by ER staff at 1857 shows sinus rhythm, no STEMI as read by Dr. Mason at 1907. [] (BRYANNA RANDLE APRN) Radiology/Procedures: Radiology/Procedures: PROCEDURE: PORTABLE CHEST 1V Single view chest dated 11/16/2020 8:16 PM: COMPARISON: 11/08/2020 Clinical Indication: Covid 19. Follow-up. Findings: Single upright portable exam of the chest was performed. Heart size mildly enlarged, stable. There is some patchy increased density in the perihilar regions, mildly increased. No pleural effusion. No pneumothorax. IMPRESSION: 1. Mild interval increase in perihilar airspace disease, atelectasis versus pneumonia. Covid 19 pneumonitis not excluded. 2. Stable mild cardiomegaly. Electronically signed by: Michael Gallegos MD (11/16/2020 8:17 PM) [facility] [place] DICTATED AND SIGNED BY: MICHAEL GALLEGOS MD DATE: 11/16/202015 CC: DENISE WOODWARD MD; BRYANNA RANDLE APRN ~MTH0 0 [] (BRYANNA RANDLE APRN) Heart Score: C/O Chest Pain: No Risk Factors: Risk Factors: DM, Current or recent (<one month) smoker, HTN, HLP, family history of CAD, obesity. Risk Scores: Score 0 - 3: 2.5% MACE over next 6 weeks - Discharge Home Score 4 - 6: 20.3% MACE over next 6 weeks - Admit for Clinical Observation Score 7 - 10: 72.7% MACE over next 6 weeks - Early Invasive Strategies (BRYANNA RANDLE APRN) Course & Med Decision Making: Course & Med Decision Making Pertinent Labs and Imaging studies reviewed. (See chart for details) [] Patient is a 65-year-old female being seen in the ER for fatigue and dizziness for 2 days. Patient is a dialysis patient does peritoneal at home. Work-up in the ER consisted of blood work, urinalysis, EKG. psychiatric assessment team to evaluate patient. Patient was noted to have leukocytosis. Her BUN is 46 and creatinine is 5.5. Patient was noted to have a positive Covid test in the ER which explains her symptoms of fatigue. Chest x-ray positive for pneumonia. Patient will be given an antibiotic. Patient reported that she cannot perform peritoneal dialysis at home because her valve is not functioning. Patient is requesting to be transferred to [place]. 2015: Awaiting psychiatric assessment team evaluation. Psychiatric assessment team did not evaluate patient prior to transfer due to condition. 2203: I paged the hospitalist at [facility] regarding patient transfer. I spoke with Dr. Trevino who agreed to see the patient to evaluate her dialysis shunt in dialysis I saw her at [facility]. I discussed patient's case with Dr. Dover the hospitalist at [facility] and he agreed to accept patient under his services. 2130: Bed assignment pending at this time. Care transferred. (BRYANNA RANDLE APRN) Course & Med Decision Making I have participated in the care of this patient and I have reviewed and agree with all pertinent clinical information above including history, exam, and recommendations. Ismael Mason DO (ISMAEL MASON DO) Shayne Disclaimer: Shayne Disclaimer: This electronic medical record was generated, in whole or in part, using a voice recognition dictation system. (BRYANNA RANDLE APRN) Departure Departure: Impression: Primary Impression: COVID-19 Additional Impressions: Encounter for psychiatric assessment Renal failure Qualified Codes: N18.9 - Chronic kidney disease, unspecified Disposition: 02 SHORT TERM HOSPITAL Condition: GOOD Referrals: DENISE WOODWARD MD (PCP) BRYANNA RANDLE APRN Nov 16, 2020 18:47 ISMAEL MASON DO Nov 17, 2020 03:29
--- NOTE | 2020-11-16 19:18 | EKG ---
[address] [address] Test Date: 2020-11-16 Test Time: 18:57:47 Pat Name: BRENDA COBOS Department: Room: Gender: F Physical Education Specialist: JEANIE : 1955 Requested By: BRYANNA RANDLE Order Number: [id number] Reading MD: Measurements Intervals [place] Rate: 69 P: 49 [place]: 198 QRS: 22 QRSD: 94 T: 64 QT: 434 QTc: 467 Interpretive Statements SINUS RHYTHM ATRIAL PREMATURE COMPLEX(ES) NO SPECIFIC ECG ABNORMALITIES RI6.02 No previous ECG available for comparison
[2020-11-16 19:22] LABS: BASO % 0 % (0-3); EOS % 0 % (0-3); HEMATOCRIT 31.3 % (36.0-47.0); HEMOGLOBIN 10.1 g/dL (12.0-15.5); LYMPH # 1.1 x10^3/uL (1.0-4.8); LYMPH % 7 % (24-48); MEAN CORPUSCULAR HEMOGLOBIN 32 pg (25-35); MEAN CORPUSCULAR HGB CONC 32 g/dL (31-37); MEAN CORPUSCULAR VOLUME 98 fL (79-100); MONO % 6 % (0-9); NEUT # 14.7 x10^3uL (1.8-7.7); NEUT % 87 % (31-73); PLATELET COUNT 198 x10^3/uL (140-400); RED CELL DISTRIBUTION WIDTH 14.5 % (11.5-14.5); WHITE BLOOD COUNT 16.8 x10^3/uL (4.0-11.0)
[2020-11-16 19:27] LABS: CALCIUM 7.6 mg/dL (8.5-10.1); CREATININE 5.5 mg/dL (0.6-1.0); GFR 7.8
[2020-11-16 19:36] LABS: ALBUMIN 2.3 g/dL (3.4-5.0); ALBUMIN/GLOBULIN RATIO 0.7 (1.0-1.7); TOTAL BILIRUBIN 0.3 mg/dL (0.2-1.0); TOTAL PROTEIN 5.4 g/dL (6.4-8.2)
--- NOTE | 2020-11-16 20:20 | RAD ---
Single view chest dated 11/16/2020 8:16 PM: COMPARISON: 11/08/2020 Clinical Indication: Covid 19. Follow-up. Findings: Single upright portable exam of the chest was performed. Heart size mildly enlarged, stable. There is some patchy increased density in the perihilar regions, mildly increased. No pleural effusion. No pn eumothorax. IMPRESSION: 1. Mild interval increase in perihilar airspace disease, atelectasis versus pneumonia. Covid 19 pneum onitis not excluded. 2. Stable mild cardiomegaly. Electronically signed by: Michael Gallegos MD (11/16/2020 8:17 PM) SUZIE
[2020-11-16] MEDS ORDERED: AZIT250T6 PO (20:32)
[2020-11-16] MEDS ORDERED: AZITHROMYCIN 250 MG TABLET. PO ONE (20:45)
[2020-11-16] MEDS ORDERED: AZITHROMYCIN 500 MG in IV NORMAL SALINE 250ML 250 ML IV ONE (21:30)
[2020-11-16 21:46] LABS: % BANDS 2 % (0-9); % LYMPHS 8 % (24-48); % MONOS 2 % (0-10); % SEGS 88 % (35-66); PLATELET CLUMP PRESENT; PLT ESTIMATE ADEQUATE (ADEQUATE)
[2020-11-16] MEDS ORDERED: AZITHROMYCIN 500 MG VIAL. IV ONE (23:11)
[2020-11-16] MEDS ORDERED: cefTRIAXone SODIUM 1 GM VIAL ONE (23:11)
[2020-11-16] MEDS ORDERED: IV NORMAL SALINE 250ML 250 ML ONE (23:11)
[2020-11-16] MEDS ORDERED: IV NORMAL SALINE 50ML 50 ML ONE ×2 (23:11→23:12)
[2020-11-17 00:30] VITALS: BP 106/56
== END 2020-11-17 00:35 | disposition short-term general hospital (02) ==
LOC: ER 18:17
DX: U07.1 COVID-19 (principal); Z00.8 Encounter for other general examination; I12.9 Hypertensive chronic kidney disease with stage 1 through stage 4 chronic kidney disease, or unspecified chronic kidney disease; N18.9 Chronic kidney disease, unspecified
CPT/HCPCS: 36415; 71045; 80053; 83605; 85007; 85025; 87426; 93005; 96365; 96368; 99285; G0480; J0456; J0696; J7050; U0003

== ENCOUNTER → 2020-12-09 | Outpatient (CLI) | payer MEDICARE, MEDICAID ==
[2020-11-17 00:30] VITALS: BP 106/56
[~2020-12-09] MED LIST changes: +AZIT250T6 PO
== END ==
LOC: LAB 07:10
PROVIDERS: ATTEND Internal Medicine Cardiovascular Disease
DX: U07.1 COVID-19 (principal); Z01.812 Encounter for preprocedural laboratory examination
CPT/HCPCS: U0003

== ENCOUNTER 2021-05-06 09:48 | Emergency (ER) | payer MEDICARE, MEDICAID ==
[~2021-05-06] VITALS: Ht 160 cm; Wt 65.0 kg
[2021-05-06 09:48] VITALS: BP 112/56
[~2021-05-06 09:48] MED LIST changes: -CITA10TA4 PO; +CITA10TA5 PO
--- NOTE | 2021-05-06 11:05 | RAD ---
4 view left knee dated 05/06/2021. COMPARISON: 03/17/2020. INDICATION: Swelling and pain. FINDINGS: 4 views of left knee show normal bony alignment. No displaced fracture. Mild tricompartmental hypertr ophic change with small marginal osteophytes. There is a small to moderate size joint effusion with l ateral patellar subluxation. No loose body. IMPRESSION: 1. No acute bony abnormality. 2. Small moderate size joint effusion. If there is clinical concern for internal derangement, MRI wou ld better evaluate. 3. 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 Electronically signed by: Michael Gallegos MD (05/06/2021 11:03 AM) [id number]
[2021-05-06 11:40] LABS: BASO # 0.1 x10^3/uL (0.0-0.2); BASO % 1 % (0-3); EOS # 0.1 x10^3/uL (0.0-0.7); EOS % 2 % (0-3); HEMATOCRIT 35.3 % (36.0-47.0); HEMOGLOBIN 11.3 g/dL (12.0-15.5); LYMPH # 0.8 x10^3/uL (1.0-4.8); LYMPH % 15 % (24-48); MEAN CORPUSCULAR HEMOGLOBIN 30 pg (25-35); MEAN CORPUSCULAR HGB CONC 32 g/dL (31-37); MEAN CORPUSCULAR VOLUME 93 fL (79-100); MONO # 0.5 x10^3/uL (0.0-1.1); MONO % 9 % (0-9); NEUT # 3.9 x10^3uL (1.8-7.7); NEUT % 73 % (31-73); PLATELET COUNT 252 x10^3/uL (140-400); RED BLOOD COUNT 3.81 x10^6/uL (3.50-5.40); RED CELL DISTRIBUTION WIDTH 16.5 % (11.5-14.5); WHITE BLOOD COUNT 5.4 x10^3/uL (4.0-11.0)
[2021-05-06 11:46] LABS: CALCIUM 10.4 mg/dL (8.5-10.1); CREATININE 3.8 mg/dL (0.6-1.0); POTASSIUM 5.4 mmol/L (3.5-5.1)
[2021-05-06 11:52] LABS: ALBUMIN 2.9 g/dL (3.4-5.0); ALBUMIN/GLOBULIN RATIO 0.6 (1.0-1.7); C REACTIVE PROTEIN 42.4 mg/L (0-3.3); MAGNESIUM 1.7 mg/dL (1.8-2.4); PHOSPHORUS 3.1 mg/dL (2.6-4.7); TOTAL BILIRUBIN 0.4 mg/dL (0.2-1.0); TOTAL PROTEIN 7.4 g/dL (6.4-8.2)
[2021-05-06 11:58] LABS: INFLUENZA A PATIENT NEGATIVE (NEGATIVE); INFLUENZA B PATIENT NEGATIVE (NEGATIVE)
[2021-05-06 13:11] LABS: SEDIMENTATION RATE 72 (0-25)
--- NOTE | 2021-05-06 13:16 | PHYS DOC ---
Past History Past Medical History: Hypertension Additional Past Medical Histor: dialysis, vertigo (MICHAEL STRAUSS APRN) Past Surgical History: No Surgical History (MICHAEL STRAUSS APRN) Alcohol Use: None (MICHAEL STRAUSS APRN) Adult General Chief Complaint Chief Complaint: KNEE INJURY HPI HPI Patient is a 66-year-old female presents emergency department complaining of left knee swelling for the past week. Patient reports she woke up with knee swelling and pain approximately 1 week ago, has not treated with pain medications, has not tried nonpharmacological pain relief methods, reports no pain at rest, reports pain when touching or walking. Patient denies injury to this knee. Patient denies falling. Patient denies numbness or tingling proximally or distally to her knee. Patient denies radiation of her pain. Patient reports her pain is on the kneecap area, denies pain to the sides of her knee or back of her knee. Patient reports she is a peritoneal dialysis patient and performs peritoneal dialysis 3 times a day. Patient denies fever or chills, shortness of breath, chest pains. Patient reports she is worried she may have the COVID-19 virus. Patient states she has been vaccinated for both the flu and COVID-19 virus this past year. Patient denies other physical complaints or physical concerns. (MICHAEL STRAUSS APRN) Review of Systems Review of Systems 14 body systems of review of systems have been reviewed. See HPI for pertinent positives and negative responses, otherwise all other systems are negative, nonpertinent or noncontributory. Constitutional: Negative except as outlined in HPI above. Skin: Negative except as outlined in HPI above. Eyes: Negative except as outlined in HPI above. HENT: Negative except as outlined in HPI above. Respiratory: Negative except as outlined in HPI above. Cardiovascular: Negative except as outlined in HPI above. GI: Negative except as outlined in HPI above. : Negative except as outlined in HPI above. Musculoskeletal: Negative except as outlined in HPI above. Integument: Negative except as outlined in HPI above. Neurologic: Negative except as outlined in HPI above. Endocrine: Negative except as outlined in HPI above. Lymphatic: Negative except as outlined in HPI above. Psychiatric: Negative except as outlined in HPI above. (MICHAEL STRAUSS APRN) Allergies Allergies Allergies Coded Allergies Type Severity Reaction Last Updated Verified No Known Drug Allergies 09/19/20 No (MICHAEL STRAUSS APRN) Physical Exam Physical Exam Constitutional: Well developed, well nourished, no acute distress, non-toxic appearance. 66-year-old female in no apparent distress. HENT: Normocephalic, atraumatic. Eyes: Conjunctiva normal, no discharge. Neck: Normal range of motion, no stridor. Cardiovascular: No cyanosis appreciated, distal cap refill less than 2 seconds. Lungs & Thorax: Patient is in no respiratory distress, no audible adventitious lung sounds appreciated. Abdomen: Nontender, no abnormalities noted. Peritoneal dialysis catheter without drainage or infectious process noted at insertion site. Skin: Warm, dry, no erythema, no rash. Back: No tenderness, no deformities. Extremities: No tenderness, no cyanosis, no clubbing, ROM intact, no edema. Except for left knee, mild swelling anteriorly, is not erythematous, is not hot to touch, no swelling to medial or lateral aspect of knee, no pain to palpation of popliteal surfaces, pain to palpation over kneecap, full passive range of motion without eliciting pain, pain elicited with palpation over kneecap. Distal cap refills less than 2 seconds equal bilateral lower extremities, 2+ pedal pulses equal bilaterally lower extremities. No skin discoloration appreciated of the left knee. Neurologic: Alert and oriented X 3, normal motor function, normal sensory function, no focal deficits noted. Psychologic: Affect normal, judgement normal, mood normal. (MICHAEL STRAUSS APRN) Current Patient Data Vital Signs Vital Signs Date Time Temp Pulse Resp B/P (MAP) Pulse Ox O2 Delivery O2 Flow Rate FiO2 05/06/21 09:48 98.1 86 16 112/56 (74) 98 Room Air Lab Results Laboratory Tests Test 05/06/21 10:55 White Blood Count 5.4 x10^3/uL Red Blood Count 3.81 x10^6/uL Hemoglobin 11.3 g/dL Hematocrit 35.3 % Mean Corpuscular Volume 93 fL Mean Corpuscular Hemoglobin 30 pg Mean Corpuscular Hemoglobin Concent 32 g/dL Red Cell Distribution Width 16.5 % Platelet Count 252 x10^3/uL Neutrophils (%) (Auto) 73 % Lymphocytes (%) (Auto) 15 % Monocytes (%) (Auto) 9 % Eosinophils (%) (Auto) 2 % Basophils (%) (Auto) 1 % Neutrophils # (Auto) 3.9 x10^3uL Lymphocytes # (Auto) 0.8 x10^3/uL Monocytes # (Auto) 0.5 x10^3/uL Eosinophils # (Auto) 0.1 x10^3/uL Basophils # (Auto) 0.1 x10^3/uL Erythrocyte Sedimentation Rate 72 Sodium Level 134 mmol/L Potassium Level 5.4 mmol/L Chloride Level 97 mmol/L Carbon Dioxide Level 27 mmol/L Anion Gap 10 Blood Urea Nitrogen 26 mg/dL Creatinine 3.8 mg/dL Estimated GFR (Cockcroft-Gault) 12.0 BUN/Creatinine Ratio 7 Glucose Level 74 mg/dL Calcium Level 10.4 mg/dL Phosphorus Level 3.1 mg/dL Magnesium Level 1.7 mg/dL Total Bilirubin 0.4 mg/dL Aspartate Amino Transf (AST/SGOT) 12 U/L Alanine Aminotransferase (ALT/SGPT) 13 U/L Alkaline Phosphatase 77 U/L C-Reactive Protein 42.4 mg/L Total Protein 7.4 g/dL Albumin 2.9 g/dL Albumin/Globulin Ratio 0.6 Influenza Type A (Rapid) Negative Influenza Type B (Rapid) Negative SARS-CoV-2 Antigen (Rapid) Negative Laboratory Tests Test 05/06/21 10:55 White Blood Count 5.4 x10^3/uL (4.0-11.0) Red Blood Count 3.81 x10^6/uL (3.50-5.40) Hemoglobin 11.3 g/dL (12.0-15.5) L Hematocrit 35.3 % (36.0-47.0) L Mean Corpuscular Volume 93 fL (79-100) Mean Corpuscular Hemoglobin 30 pg (25-35) Mean Corpuscular Hemoglobin Concent 32 g/dL (31-37) Red Cell Distribution Width 16.5 % (11.5-14.5) H Platelet Count 252 x10^3/uL (140-400) Neutrophils (%) (Auto) 73 % (31-73) Lymphocytes (%) (Auto) 15 % (24-48) L Monocytes (%) (Auto) 9 % (0-9) Eosinophils (%) (Auto) 2 % (0-3) Basophils (%) (Auto) 1 % (0-3) Neutrophils # (Auto) 3.9 x10^3uL (1.8-7.7) Lymphocytes # (Auto) 0.8 x10^3/uL (1.0-4.8) L Monocytes # (Auto) 0.5 x10^3/uL (0.0-1.1) Eosinophils # (Auto) 0.1 x10^3/uL (0.0-0.7) Basophils # (Auto) 0.1 x10^3/uL (0.0-0.2) Erythrocyte Sedimentation Rate 72 (0-25) H Sodium Level 134 mmol/L (136-145) L Potassium Level 5.4 mmol/L (3.5-5.1) H Chloride Level 97 mmol/L (98-107) L Carbon Dioxide Level 27 mmol/L (21-32) Anion Gap 10 (6-14) Blood Urea Nitrogen 26 mg/dL (7-20) H Creatinine 3.8 mg/dL (0.6-1.0) H Estimated GFR (Cockcroft-Gault) 12.0 BUN/Creatinine Ratio 7 (6-20) Glucose Level 74 mg/dL (70-99) Calcium Level 10.4 mg/dL (8.5-10.1) H Phosphorus Level 3.1 mg/dL (2.6-4.7) Magnesium Level 1.7 mg/dL (1.8-2.4) L Total Bilirubin 0.4 mg/dL (0.2-1.0) Aspartate Amino Transferase (AST) 12 U/L (15-37) L Alanine Aminotransferase (ALT) 13 U/L (14-59) L Alkaline Phosphatase 77 U/L (46-116) C-Reactive Protein 42.4 mg/L (0-3.3) H Total Protein 7.4 g/dL (6.4-8.2) Albumin 2.9 g/dL (3.4-5.0) L Albumin/Globulin Ratio 0.6 (1.0-1.7) L Influenza Type A (Rapid) Negative (NEGATIVE) Influenza Type B (Rapid) Negative (NEGATIVE) SARS-CoV-2 Antigen (Rapid) Negative (NEGATIVE) (MICHAEL STRAUSS APRN) EKG EKG [] (MICHAEL STRAUSS APRN) Radiology/Procedures Radiology/Procedures REASON: Spontaneous swelling, pain PROCEDURE: KNEE LEFT 4V 4 view left knee dated 05/06/2021. COMPARISON: 03/17/2020. INDICATION: Swelling and pain. FINDINGS: 4 views of left knee show normal bony alignment. No displaced fracture. Mild tricompartmental hypertrophic change with small marginal osteophytes. There is a small to moderate size joint effusion with lateral patellar subluxation. No loose body. IMPRESSION: 1. No acute bony abnormality. 2. Small moderate size joint effusion. If there is clinical concern for internal derangement, MRI would better evaluate. 3. 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 Electronically signed by: Michael Gallegos MD (05/06/2021 11:03 AM) [id number] (MICHAEL STRAUSS APRN) Heart Score C/O Chest Pain: No Risk Factors: Risk Factors: DM, Current or recent (<one month) smoker, HTN, HLP, family history of CAD, obesity. Risk Scores: Risk Factors: DM, Current or recent (<one month) smoker, HTN, HLP, family history of CAD, obesity. (MICHAEL STRAUSS APRN) Course & Med Decision Making Course & Med Decision Making Pertinent Labs and Imaging studies reviewed. (See chart for details) 66-year-old female, vital signs reviewed, presents to the emergency department concerning nontraumatic left knee swelling and pain for the past week. Physical examination concerning for bursitis versus other knee abnormality, unlikely a tendon injury as there is no complaint of trauma or incident. Will order x-ray of knee left, CBC, CMP, ESR, CRP. Covid 19/rapid flu testing. X-ray concerning for small knee effusion, wet read performed by myself and ED attending physician Dr. De La Rosa concerning for patellar spurring, arthritic changes, did report patellar subluxation, however physical examination there is full passive range of motion without eliciting pain. Patient's labs consistent with end-stage renal disease, COVID-19 testing/rapid flu negative. ESR/CRP is elevated, suspicious for swelling related to DJD, patellar spurring, discussed findings with patient, patient reports she is aware of her arthritis in her knee, has been told her knee is [id number], has been recommended she has physical therapy and orthopedic follow-up, patient states she just wants a prescription for Ruby for pain control. Discussed with patient will give pain medication in ED today, strict follow-up with primary care this week, orthopedic follow-up soon, will place Zion bandage to assist with swelling, discussed RICE therapy, patient gave verbal understanding of and is amenable to ED discharge planning. Discussed with the patient all findings and diagnostic testing as well as the need to follow-up with their primary care provider for further evaluation and treatment or return to the ED if any new or worsening symptoms. Strict return precautions were also discussed at length, the patient voiced understanding and agreement with the discharge planning. The patient was nontoxic in appearance, in no apparent distress, and hemodynamically stable at the time of disposition. (MICHAEL STRAUSS APRN) Dragon Disclaimer Dragon Disclaimer This electronic medical record was generated, in whole or in part, using a voice recognition dictation system. (MICHAEL STRAUSS APRN) Attending Co-Sign The patient was seen and interviewed as well as examined at the bedside. The chart was reviewed. The case was discussed. Agree with the plan of care. (DAVID DE LA ROSA DO) Departure Departure: Impression: Primary Impression: Left anterior knee pain Disposition: HOME / SELF CARE / HOMELESS Condition: GOOD Referrals: DENISE WOODWARD MD (PCP) Patient Instructions: Knee Wraps (Elastic Bandage) and RICE Additional Instructions: You were seen today in the emergency department for pain and swelling to the left knee. You were given an oral pain medication for discomfort, an x-ray was performed that showed degenerative joint disease changes, you had stated you are aware of this, as we discussed please follow-up with your primary care physician and a trade specialist for ongoing therapy related to your left knee pain. An Zion wrap bandage has been placed to assist with swelling and discomfort, please use RICE therapy, this is an acronym for rest, ice, compression, elevation to assist with swelling and discomfort. Take all me dications at home as prescribed by your doctor, please continue your normal peritoneal dialysis procedures, thank you for visiting our Emergency Department. It was a pleasure taking care of you today in the emergency department and we appreciate you trusting us with your care. If any additional problems come up don't hesitate to return to visit us. Please follow up with your primary care provider so they can plan additional care if needed and know about the problem that you had. If symptoms worsen come back to the Emergency Department. Any concerning symptoms that start such as chest pain, shortness of air, weakness or numbness on one side of the body, running high fevers or any other concerning symptoms return to the ER. orthopedic specialty [address], [place] [address] EMERGENCY DEPARTMENT GENERAL DISCHARGE INSTRUCTIONS Thank you for coming to [facility] (ED) today and trusting us with you care. We trust that you had a positivie experience in our Emergency Department. If you wish to speak to the department management, you may call the director at [phone]. YOUR FOLLOW UP INSTRUCTIONS ARE FOLLOWS: 1. Do you have a private Doctor? If you do not have a private doctor, please ask for a resource list of physicians or clinics that may be able to assist you with follow up care. 2. The Emergency Physician has interpreted your x-rays. The X-Ray specialist will also review them. If there is a change in the findings, you will be notified in 48 hours when at all possible. 3. A lab test or culture has been done, your results will be reviewed and you will be notified if you need a change in treatment. ADDITIONAL INSTRUCTIONS AND INFORMATION: 1. Your care today has been supervised by a physician who is specially trained in emergency care. Many problems require more than one evaluation for a complete diagnosis and treatment. We recommend that you schedule your follow up appointment as recommended to ensure complete treatment of you illness or injury. If you are unable to obtain follow up care and continue to have a problem, or if your condition worsens, we recommend that you return to the ED. 2. We are not able to safely determine your condition over the phone nor are we able to give sound medical advice over the phone. For these safety reasons, if you call for medical advice we will ask you to come to the ED for further evaluation. 3. If you have any questions regarding these discharge instructions please call the ED at [phone]. SAFETY INFORMATION: In the interest of safety, wellness, and injury prevention; we encourage you to wear your sealbelt, if you smoke; quite smoking, and we encourage family to use a protective helmet for bicycling and other sporting events that present an increased risk for head injury. IF YOUR SYMPTOMS WORSEN OR NEW SYMPTOMS DEVELOP, OR YOU HAVE CONCERNS ABOUT YOUR CONDITION; OR IF YOUR CONDITION WORSENS WHILE YOU ARE WAITING FOR YOUR FOLLOW UP APPOINTME NT; EITHER CONTACT YOUR PRIMARY CARE DOCTOR, THE PHYSICIAN WHOSE NAME AND NUMBER YOU WERE GIVEN, OR RETURN TO THE ED IMMEDIATELY. Scripts Hydrocodone Bit/Acetaminophen (HYDROCODONE-APAP 5-325 ) 1 Each Tablet 1 TAB PO PRN Q6HRS PRN for PAIN, #10 TAB 0 Refills Prov: MICHAEL STRAUSS APRN 05/06/21 MICHAEL STRAUSS APRN May 06, 2021 13:15 DAVID DE LA ROSA DO May 07, 2021 10:24
[2021-05-06] MEDS ORDERED: HYDR-2155 PO (13:34)
[2021-05-06] MEDS ORDERED: HYDROcodone/APAP 5/325MG 1 TAB TABLET PO ONE (13:45)
== END 2021-05-06 13:55 | disposition home or self-care (01) ==
LOC: ER 09:48
DX: M25.562 Pain in left knee (principal); R22.42 Localized swelling, mass and lump, left lower limb; I10 Essential (primary) hypertension; Z20.822 Contact with and (suspected) exposure to COVID-19
CPT/HCPCS: 36415; 73564; 80053; 83735; 84100; 85025; 85651; 86140; 87040; 87428; 99284